=== PATIENT | male | born 1955 | race Caucasian/White ===

== ENCOUNTER 2018-11-28 10:03 | Emergency (ER) | payer BC, SELFPAY ==
[2018-11-28 10:04] VITALS: BP 139/88; PULSE 96; RESP 16; TEMP 36.7; O2SAT 97; BMI 25.8
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
--- NOTE | 2018-11-28 11:13 | ED.RN ---
LAB TO DRAW BLOOD. CALLED [facility] FOR PICC LINE PLACEMENT PER DR PRUETT ORDER.
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
[2018-11-28 12:28] VITALS: BP 134/88; PULSE 90; RESP 17; O2SAT 95
== END 2018-11-28 12:29 | disposition home or self-care (01) ==
PROVIDERS: Emergency Provider Emergency Medicine; Family Provider Family Medicine; PCP Family Medicine
DX: S29.011A Strain of muscle and tendon of front wall of thorax, initial encounter (principal); I10 Essential (primary) hypertension; V43.52XA Car driver injured in collision with other type car in traffic accident, initial encounter; Y93.I9 Activity, other involving external motion; Y92.410 Unspecified street and highway as the place of occurrence of the external cause; Y99.8 Other external cause status
CPT/HCPCS: 71111; 99282